=== PATIENT | female | born 1955 | race Caucasian/White ===

== ENCOUNTER 2016-07-21 20:33 | Emergency (ER) | payer OTHER ==
[~2016-07-21] VITALS: Ht 172.7 cm; Wt 93.3 kg
[2016-07-21 20:56] VITALS: BP 112/60; PULSE 73; RESP 18; TEMP 98; O2SAT 98
[2016-07-21] MEDS ORDERED: VITA100064 PO (21:15)
[2016-07-21] MEDS ORDERED: LEVO137T2 PO (21:15)
[2016-07-21] MEDS ORDERED: OMEP20TA PO (21:15)
[2016-07-21] MEDS ORDERED: LISI-519 PO (21:15)
--- NOTE | 2016-07-21 21:19 | PD ---
HPI Chief Complaint: ENT Complaint Time Seen by Provider: 21:10 Travel History International Travel<30 days: No Contact w/Intl Traveler<30days: No Traveled to known affect area: No History of Present Illness HPI 60-year-old female presents the emergency department with one half week history of upper respiratory symptoms including congestion, intermittent sore throat, and diarrhea last week. She is here tonight because she had increased sore throat and pain with swallowing. Patient has had a headache that she's been taking Claritin for. Patient denies significant fever or ear pain. Patient states abdominal symptoms have improved in the last several days. Patient has a history of strep she feels this feels like it. Patient is allergic to sulfa. [facility] Social History Alcohol Use: Yes Tobacco Use: No Substance Use: No Allergies-Medications (Allergen,Severity, Reaction): Coded Allergies: Sulfa (Verified Allergy, Mild, Rash, 07/21/16) Review of Systems Except as stated in HPI: all other systems reviewed are Neg General / Constitutional: No: Fever, Chills Eyes: No: Visual changes HENT: Positive: Headaches, Sore Throat, Rhinitis, Rhinorrhea, Congestion, No: Neck Stiffness, Neck Pain, Dental Difficulties, Ear Discharge, Earache Cardiovascular: No: Chest Pain or Discomfort Respiratory: No: Cough, Shortness of Breath, Wheezing Gastrointestinal: No: Abdominal Pain Genitourinary: No: Dysuria Musculoskeletal: No: Pain Skin: No Rash Neurologic: No: Weakness Psychiatric: No: Depression Endocrine: No: Polydipsia Hematologic/Lymphatic: No: Easy Bruising Physical Exam Narrative GENERAL: Patient appears in no acute distress. SKIN: Warm and dry. HEAD: Atraumatic. Normocephalic. EYES: Pupils equal and round. No scleral icterus. No injection or drainage. ENT: No nasal bleeding or discharge. Mucous membranes pink and moist. TMs are clear bilaterally. Patient has mild sinus tenderness with palpation of the maxillary sinuses. Posterior pharynx is cobblestoned with erythema and postnasal drip noted. No significant tonsillitis or signs of abscess. Uvula is midline. NECK: Trachea midline. Supple and nontender without significant lymphadenopathy. CARDIOVASCULAR: Regular rate and rhythm. RESPIRATORY: No accessory muscle use. Clear to auscultation. Breath sounds equal bilaterally. MUSCULOSKELETAL: Extremities without clubbing, cyanosis, or edema. No obvious deformities. NEUROLOGICAL: Awake and alert. No obvious cranial nerve deficits. Motor grossly within normal limits. Five out of 5 muscle strength in the arms and legs. Normal speech. PSYCHIATRIC: Appropriate mood and affect; insight and judgment normal. Data Data Last Documented VS Vital Signs Date Time Temp Pulse Resp B/P Pulse Ox O2 Delivery O2 Flow Rate FiO2 07/21/16 20:56 98.0 73 18 112/60 98 MDM Medical Decision Making Medical Screen Exam Complete: Yes Emergency Medical Condition: Yes Differential Diagnosis Upper respiratory infection. Pharyngitis. Postnasal drip. Sinusitis. Narrative Course Patient is medically stable at time of exam. Patient will be treated with amoxicillin 875 twice a day 10 days. Patient is also take Flonase nasal spray 2 sprays each nostril daily. Patient can take ibuprofen and Tylenol as needed [id number] for throat discomfort. Patient follow-up with her primary care physician or return to emergency Department with worsening symptoms if necessary. Diagnosis Primary Impression: Sinusitis, acute Qualified Code: J01.40 - Acute pansinusitis, recurrence not specified Additional Impression: Post-nasal drip Patient Instructions: General Instructions, Sinusitis (ED) Additional Instructions: Patient is medically stable at time of exam. Patient will be treated with amoxicillin 875 twice a day 10 days. Patient is also take Flonase nasal spray 2 sprays each nostril daily. Patient can take ibuprofen and Tylenol as needed [id number] for throat discomfort. Patient follow-up with her primary care physician or return to emergency Department with worsening symptoms if necessary. Med/Other Pt SpecificInfo: Prescription(s) given Disposition: 01 DISCHARGE HOME Condition: Stable Mario Purvis Jul 21, 2016 21:19
[2016-07-21] MEDS ORDERED: FLUT1SPR9 EACH NARE (21:20)
[2016-07-21] MEDS ORDERED: AMOX875T PO (21:20)
== END 2016-07-21 21:25 | disposition home or self-care (01) ==
LOC: PHEFT 20:33
DX: J01.90 Acute sinusitis, unspecified (principal); R09.82 Postnasal drip
CPT/HCPCS: 99283